=== PATIENT | male | born 2000 | race Two or more races ===

== ENCOUNTER 2023-09-08 12:56 | Outpatient (CLI) | payer OTHER ==
[2023-09-08] MEDS ORDERED: GADOTERATE MEGLUMINE 7.5 MMOL/15 ML VIAL ONE (14:05)
[2023-09-08] MEDS: GADOTERATE MEGLUMINE 7.5 MMOL/15 ML VIAL IVP ONE (15:32)
--- NOTE | 2023-09-08 20:34 | MRI Report ---
PROCEDURE: MRI brain with and without contrast INDICATIONS: ANOSMIA TECHNIQUE: Multiplanar multisequential MR images of the brain were obtained before and after intrave nous contrast administration. COMPARISON: None. FINDINGS: CSF spaces: Basal cisterns are patent. No extra-axial fluid collections. Ventricles are normal in size and shape. Brain: No midline shift. No intracranial bleeds or masses. No abnormal intracranial enhancement. The brainstem appears normal. Diffusion-weighted images demonstrate no acute infarct. Normal intrav ascular flow voids are present. Skull and face: Calvarial marrow is normal in signal. Orbits appear normal. Sinuses: Sinuses and mastoids appear clear. IMPRESSION: Normal MRI of the brain with and without contrast Reviewed by: Moises Haile MD on 09/08/2023 7:33 PM [facility] Approved by: Moises Haile MD on 09/08/2023 7:33 PM [facility] Station ID: [id number]
== END 2023-09-08 12:57 | disposition home or self-care (01) ==
LOC: DI 12:56
PROVIDERS: ATTEND Student in an Organized Health Care Education/Training Program
DX: R43.0 Anosmia (principal)